=== PATIENT | female | born 1975 | race Caucasian/White ===

== ENCOUNTER 2021-06-15 05:02 | Emergency (ER) | payer BC ==
[2021-06-15 07:39] LABS: HEMOGLOBIN 14.8 gm/dl (12.3-15.3); RED BLOOD COUNT 4.78 M/UL (4.00-5.10); WHITE BLOOD COUNT 10.3 K/UL (4.5-11.0)
[2021-06-15 07:49] LABS: BUN/CREATININE RATIO 14 (0-10)
[2021-06-15] MEDS ORDERED: OMNICEF 300 MG300 MG PO (09:15)
[2021-06-15] MEDS ORDERED: HYDROCODON-ACE1 EAC4 PO (09:15)
== END 2021-06-15 09:55 | disposition home or self-care (01) ==
LOC: ER1 05:02
PROVIDERS: Emergency Medicine
DX: N13.2 Hydronephrosis with renal and ureteral calculous obstruction (principal)
CPT/HCPCS: 80053; 81001; 83690; 85025; 87086; 96374; 96375; 96376; 99284; J1170; J1885; J2405; J7030; Q9967